=== PATIENT | male | born 1985 | race African-American/Black ===

== ENCOUNTER 2020-04-14 22:24 | Emergency (ER) | payer OTHER ==
[~2020-04-14] VITALS: Ht 170.2 cm; Wt 68.0 kg
[2020-04-14 23:39] LABS: Basophils # (auto) 0 10 ^3/uL (0-0.2); Basophils % (auto) 0.6 % (0.0-2.0); Eosinophils # (auto) 0 10 ^3/uL (0-0.8); Lymphocytes # (auto) 1.4 10 ^3/uL (0.4-5.4); Lymphocytes % (auto) 37.9 % (10.0-50.0); Mean Corpuscular Hemoglobin 32.9 pg (28.0-32.0); Mean Corpuscular Hgb Conc. 34.2 g/dL (32.0-36.0); Mean Corpuscular Volume 96.3 fL (80.0-100.0); Monocytes # (auto) 0.4 10 ^3/uL (0-1.3); Monocytes % (auto) 9.9 % (0.0-12.0); Neutrophils # (auto) 1.9 10 ^3/uL (1.6-8.6); Neutrophils % (auto) 50.6 % (37.0-80.0); Nucleated Red Blood Cells % 0.1 %; Platelet Count (auto) 196 10^3/uL (140-450); Red Blood Cells 4.56 10^6/uL (4.5-5.90); Red Cell Distribution Width 14.6 % (11.8-14.3); White Blood Cell 3.7 10^3/uL (4.4-10.8)
[2020-04-15 00:03] LABS: Albumin 3.9 g/dL (3.4-5.0); Potassium 3.7 mmol/L (3.5-5.1)
[2020-04-15 00:09] LABS: Bilirubin, Total 0.4 mg/dL (0.2-1.0); Calcium 8.6 mg/dL (8.5-10.1)
[2020-04-15 02:28] LABS: INR 1.01 (0.9-1.15); Partial Thromboplastin Time 30.1 sec (23.0-31.2)
[2020-04-15 05:50] VITALS: BP 115/61
== END 2020-04-15 06:04 | disposition home or self-care (01) ==
LOC: ER 22:27
DX: M60.861 Other myositis, right lower leg (principal); Z88.6 Allergy status to analgesic agent; W18.39XA Other fall on same level, initial encounter; Y93.89 Activity, other specified; Y92.098 Other place in other non-institutional residence as the place of occurrence of the external cause; Y99.8 Other external cause status
CPT/HCPCS: 36415; 73700; 80053; 83605; 85025; 85379; 85610; 85730; 87040

== ENCOUNTER 2020-06-30 07:30 | Emergency (ER) | payer MEDICAID, OTHER ==
[~2020-06-30] VITALS: Ht 170.2 cm; Wt 70.3 kg
[2020-06-30 08:13] VITALS: BP 151/91
[2020-06-30] MEDS ORDERED: cefTRIAXone SOD 1,000 MG VL IM ONE (08:15)
[2020-06-30] MEDS ORDERED: HYDROcodone-ACET 5/325MG TAB PO ONE (08:15)
[2020-06-30] MEDS ORDERED: KETOROLAC TROMETH 60MG/2ML VIAL IM ONE (08:30)
== END 2020-06-30 08:46 | disposition home or self-care (01) ==
LOC: ER 07:30
DX: K04.7 Periapical abscess without sinus (principal); Z88.8 Allergy status to other drugs, medicaments and biological substances
CPT/HCPCS: 96372; 99284; J0696; J1885